=== PATIENT | female | born 2000 | race Caucasian/White ===

== ENCOUNTER 2019-02-10 15:28 | Emergency (ER) | payer OTHER ==
--- NOTE | 2019-02-10 16:27 | ED ---
Throat Pain/Nasal Congestion - HPI Summary HPI Summary: 18 year old female presents with sore throat for the past 2 days. States that a month ago she had that a cold for a couple weeks and then it resolved. She states this time the sore throat is worse. Does have a history of strep. Denies any abdominal pain. No nausea and vomiting. She admits to slight cough. Denies any ear pain. No fevers. She admits to sinus congestion. States her throat feels very swollen. Hasn't taking anything for her symptoms. No medical conditions. - History of Current Complaint Chief Complaint: EDThroatPain Time Seen by Provider: 02/10/19 15:56 - Allergies/Home Medications Allergies/Adverse Reactions: Allergies Allergy/AdvReac Type Severity Reaction Status Date / Time No Known Allergies Allergy Verified 02/10/19 15:35 PMH/Surg Hx/FS Hx/Imm Hx Endocrine/Hematology History: Denies: Hx Anticoagulant Therapy Respiratory History: Denies: Hx Asthma - Immunization History Immunizations Up to Date: Yes Infectious Disease History: No Infectious Disease History: Denies: Traveled Outside the [place] in Last 30 Days - Family History Known Family History: Positive: Non-Contributory - Social History Alcohol Use: Weekly Alcohol Amount: weekeneds Substance Use Type: Reports: None Smoking Status (MU): Never Smoked Tobacco Review of Systems Negative: Fever Positive: Sore Throat Negative: Chest Pain Positive: Cough. Negative: Shortness Of Breath All Other Systems Reviewed And Are Negative: Yes Physical Exam Triage Information Reviewed: Yes Vital Signs On Initial Exam: Initial Vitals Temp Pulse Resp BP Pulse Ox 98 F 87 18 168/94 98 02/10/19 15:31 02/10/19 15:31 02/10/19 15:31 02/10/19 15:31 02/10/19 15:31 Vital Signs Reviewed: Yes Appearance: Positive: Well-Appearing Skin: Positive: Warm, Dry Head/Face: Positive: Normal Head/Face Inspection Eyes: Positive: Normal, EOMI, ROSA, Conjunctiva Clear ENT: Positive: Pharyngeal erythema, TMs normal, Uvula midline, Other. Negative : Tonsillar swelling, Tonsillar exudate, Trismus, Muffled voice Neck: Positive: Enlarged Nodes @ - cervical Respiratory/Lung Sounds: Positive: Clear to Auscultation, Breath Sounds Present Cardiovascular: Positive: Normal, RRR Abdomen Description: Positive: Nontender, Soft Bowel Sounds: Positive: Present Musculoskeletal: Positive: Normal Neurological: Positive: Normal Psychiatric: Positive: Normal Diagnostics - Vital Signs Vital Signs Temp Pulse Resp BP Pulse Ox 02/10/19 15:31 98 F 87 18 168/94 98 - Laboratory Lab Statement: Any lab studies that have been ordered have been reviewed, and results considered in the medical decision making process. EENT Course/Dx - Course Course Of Treatment: 18 year old female presents with sore throat for the past 2 days. States that a month ago she had that a cold for a couple weeks and then it resolved. She states this time the sore throat is worse. Does have a history of strep. Denies any abdominal pain. No nausea and vomiting. She admits to slight cough. Denies any ear pain. No fevers. She admits to sinus congestion. States her throat feels very swollen. Hasn't taking anything for her symptoms. No medical conditions. On exam pharynx erythematous. Uvula midline. Soft palate symmetric. Lungs clear to auscultation. Abdomen soft nontender. Strep is negative. will place on short course of steriods. told treat symptomaticly. patient understand and agrees with plan. - Differential Diagnoses Differential Diagnoses: Pharyngitis, Tonsilitis, URI/Bronchitis - Diagnoses Provider Diagnoses: Pharyngitis Discharge ED - Sign-Out/Discharge Documenting (check all that apply): Patient Departure Patient Received Moderate/Deep Sedation with Procedure: No - Discharge Plan Condition: Good Disposition: HOME Patient Education Materials: Pharyngitis (ED) Referrals: No Primary Care Phys,NOPCP [Primary Care Provider] - Additional Instructions: Take steroid once a day for 5 days Take Tylenol or ibuprofen for pain every 6 hours Can use cough drops or products such as cloraseptic spray follow up with [facility] if no improvement Return to ED if develop any new or worsening symptoms - Billing Disposition and Condition Condition: GOOD Disposition: Home
[2019-02-10 16:30] LABS: Rapid Strep Molecular Negative (Negative)
[2019-02-10] MEDS ORDERED: Dexamethasone TAB* 4 MG PO ONE (16:46)
[2019-02-10 17:04] VITALS: BP 122/73
== END 2019-02-10 17:10 | disposition home or self-care (01) ==
LOC: ED 15:28
DX: J02.9 Acute pharyngitis, unspecified (principal)
CPT/HCPCS: 87651; 99282; J8540

== ENCOUNTER 2019-02-12 15:46 | Emergency (ER) | payer OTHER ==
--- NOTE | 2019-02-12 17:51 | ED ---
Upper Extremity Pain - HPI Summary HPI Summary: 18-year-old female presents with left elbow pain for the past couple days. States she fell onto her elbow while she was skateboarding. Has limited range of motion. Denies any forearm or shoulder pain. Is left-handed. Has no medical conditions. Has bruising noted to left elbow. - History of Current Complaint Chief Complaint: EDExtremityUpper Stated Complaint: LT ARM IN FROM FALL PER PT Time Seen by Provider: 02/12/19 17:37 - Allergies/Home Medications Allergies/Adverse Reactions: Allergies Allergy/AdvReac Type Severity Reaction Status Date / Time No Known Allergies Allergy Verified 02/12/19 16:04 PMH/Surg Hx/FS Hx/Imm Hx Endocrine/Hematology History: Denies: Hx Anticoagulant Therapy Respiratory History: Denies: Hx Asthma Infectious Disease History: No Infectious Disease History: Denies: Traveled Outside the in Last 30 Days - Family History Known Family History: Positive: Non-Contributory - Social History Alcohol Use: Weekly Alcohol Amount: weekeneds Substance Use Type: Reports: None Smoking Status (MU): Never Smoked Tobacco Review of Systems Negative: Fever Negative: Chest Pain Negative: Shortness Of Breath Positive: Myalgia - left elbow All Other Systems Reviewed And Are Negative: Yes Physical Exam Triage Information Reviewed: Yes Vital Signs On Initial Exam: Initial Vitals Temp Pulse Resp BP Pulse Ox 98.7 F 102 16 148/83 99 02/12/19 16:00 02/12/19 16:00 02/12/19 16:00 02/12/19 16:00 02/12/19 16:00 Vital Signs Reviewed: Yes Appearance: Positive: Well-Appearing Skin: Positive: Warm, Dry, Other - ecchymosis to left elbow Head/Face: Positive: Normal Head/Face Inspection Eyes: Positive: Normal, Conjunctiva Clear ENT: Positive: Pharynx normal Respiratory/Lung Sounds: Positive: Clear to Auscultation, Breath Sounds Present Cardiovascular: Positive: Normal, RRR Musculoskeletal: Positive: Limited @ - left elbow pain, Other - good pulses Neurological: Positive: Normal Psychiatric: Positive: Normal Diagnostics - Vital Signs Vital Signs Temp Pulse Resp BP Pulse Ox 02/12/19 16:00 98.7 F 102 16 148/83 99 - Laboratory Lab Statement: Any lab studies that have been ordered have been reviewed, and results considered in the medical decision making process. - Radiology elbow Radiology Interpretation Completed By: Radiologist Summary of Radiographic Findings: IMPRESSION: RADIAL HEAD FRACTURE Course/Dx - Course Course Of Treatment: 18-year-old female presents with left elbow pain for the past couple days. States she fell onto her elbow while she was skateboarding. Has limited range of motion. Denies any forearm or shoulder pain. Is left- handed. Has no medical conditions. Has bruising noted to left elbow. On exam ecchymosis noted to left elbow. Limited flexion. Neurovascular intact. X-ray shows radial head fracture. gave sling. will have follow-up orthopedic. Patient understands agrees the plan. - Diagnoses Differential Diagnosis/HQI/PQRI: Positive: Fracture (Closed), Strain, Sprain Provider Diagnoses: Radial head fracture Discharge ED - Sign-Out/Discharge Documenting (check all that apply): Patient Departure Patient Received Moderate/Deep Sedation with Procedure: No - Discharge Plan Condition: Good Disposition: HOME Patient Education Materials: Elbow Fracture (ED) Referrals: [facility] - Edwin BERMAN [Primary Care Provider] - Matt Veras MD [Medical Doctor] - Additional Instructions: Keep sling on area Take Tylenol or ibuprofen every 6 hours as needed for pain Apply ice, rest, elevate Follow up with ortho Return to ED if develop any new or worsening symptoms - Billing Disposition and Condition Condition: GOOD Disposition: Home
[2019-02-12 17:55] VITALS: BP 135/88
== END 2019-02-12 17:58 | disposition home or self-care (01) ==
LOC: ED 15:46
DX: S52.122A Displaced fracture of head of left radius, initial encounter for closed fracture (principal); V00.131A Fall from skateboard, initial encounter; Y93.51 Activity, roller skating (inline) and skateboarding; Y92.9 Unspecified place or not applicable
CPT/HCPCS: 99282